=== PATIENT | female | born 1990 | race Caucasian/White ===

== ENCOUNTER 2017-12-23 04:05 | Emergency (ER) | payer BC ==
[~2017-12-23] VITALS: Ht 165.1 cm; Wt 83.2 kg
[~2017-12-23 04:05] MED LIST: CONCERTA36 MG PO; NAPROSYN500 MG PO
[2017-12-23 05:46] VITALS: BP 127/70
== END 2017-12-23 05:47 | disposition home or self-care (01) ==
LOC: EME 04:05
DX: F32.9 Major depressive disorder, single episode, unspecified (principal); Z04.6 Encounter for general psychiatric examination, requested by authority; F90.9 Attention-deficit hyperactivity disorder, unspecified type; Z91.018 Allergy to other foods
CPT/HCPCS: 90837; 99281; 99285